=== PATIENT | male | born 1940 | race Caucasian/White ===

== ENCOUNTER 2021-06-15 12:51 | Observation (INO) ==
[2021-06-15] MEDS ORDERED: GLUCAGON 1 MG VIAL IM PRN (13:47)
[2021-06-15] MEDS ORDERED: DEXTROSE 50% 25 GM/50 ML VIAL IV PRN (13:47)
[2021-06-15 14:19] LABS: Basophils % 0.3 % (0.0-0.8); Eosinophils % 0.5 % (0.00-10.9); Hematocrit 35.9 VOL% (42.0-52.0); Hemoglobin 11.4 GM/DL (14.0-18.0); Immature Granulocytes % 0.5 %; Immature Granulocytes Absolute 0.04 #; Lymphocytes % 13.4 % (21.2-54.2); Mean Corpuscular HGB Conc 31.8 GM/DL (32-36); Mean Corpuscular Volume 94.2 FL (87-102); Mean Platelet Volume 10.2 FL (9.6-12.0); Monocytes % 7.1 % (1.7-12.7); Neutrophils % 78.2 % (38.7-73.9); Platelet Count 128 T/CUMM (130-400); Red Blood Count 3.81 MC/CUMM (3.8-5.5); Red Cell Distribution Width 15.2 % (9.3-17.3); White Blood Count 7.6 T/CUMM (4-12)
[2021-06-15 14:34] LABS: Bilirubin,Urine Negative (Negative); Blood, Urine Negative (Negative); Glucose,Urine (UA) 50 mg/dL (Negative); Hyaline Casts,Urine 9 /LPF (0-3); Ketones,Urine Negative (Negative); Mucus,Urine Occasional /LPF (Occasional); Nitrite,Urine Negative (Negative); Protein,Urine Negative; RBC,Urine <1 /HPF (0-4); Urine Appearance CLEAR (Clear); Urine Color Yellow (Yellow); Urine Specific Gravity 1.019 (1.001-1.035); Urine Urobilinogen < 2.0 EU/DL (0.2-1.0)
[2021-06-15 14:39] LABS: Alanine Aminotransferase 25 U/L (16-61); Albumin 3.5 G/DL (3.4-5.0); Alkaline Phosphatase 136 U/L (45-117); Aspartate Amino Transferase 23 U/L (0-37); Bilirubin,Total < 0.39 MG/DL (0.20-1.00); Blood Urea Nitrogen 28 MG/DL (7-18); Calcium 8.8 MG/DL (8.5-10.1); Carbon Dioxide 26 MMOL/L (21-32); Estimated Glom Filtration Rate 85 ML/MIN; Glucose 81 MG/DL (74-106); Osmolality,Calculated 281.5 MOS/KG (273-304); Potassium 4.4 MMOL/L (3.5-5.1); Sodium 139 MMOL/L (136-145); Total Protein 7.1 G/DL (6.4-8.2)
[2021-06-15] MEDS: DEXTROSE 5% NACL 0.45% 1,000 ML IV SCH ×2 (15:19→16:49)
[2021-06-15] MEDS ORDERED: ONDANSETRON 4 MG/2 ML VIAL IV PRN (15:46)
[2021-06-15] MEDS ORDERED: ACETAMINOPHEN 325 MG TABLET PO PRN (15:46)
[2021-06-15] MEDS ORDERED: ENOXAPARIN 40 MG/0.4 ML SYRINGE SUBCUT SCH (16:00)
[2021-06-15] MEDS ORDERED: INFLUENZA VIRUS VACCINE 0.5 ML SYRINGE IM ONE (18:19)
[2021-06-15] MEDS ORDERED: traZODone 50 MG TABLET PO SCH (21:00)
[2021-06-15] MEDS ORDERED: SIMVASTATIN 20 MG TABLET PO SCH (21:00)
[2021-06-15] MEDS ORDERED: lisinopriL 2.5 MG TABLET PO SCH (21:00)
[2021-06-15] MEDS ORDERED: rOPINIRole 0.25 MG TABLET PO SCH (21:00)
[2021-06-15] MEDS ORDERED: metFORMIN 500 MG TABLET PO SCH (21:00)
[2021-06-15] MEDS ORDERED: DONEPEZIL 5 MG TABLET PO SCH (21:00)
[2021-06-15] MEDS: MAGNESIUM OXIDE 400 MG TABLET PO SCH (21:39)
[2021-06-15] MEDS: APIXABAN 5 MG TABLET PO SCH (21:39)
[2021-06-15] MEDS: METOPROLOL TARTRATE 25 MG TABLET PO SCH (21:40)
[2021-06-15] MEDS: COLCHICINE 0.6 MG CAPSULE PO SCH (21:40)
[2021-06-16 05:51] LABS: Basophils % 0.3 % (0.0-0.8); Eosinophils # 0.1 10*3/uL (0.0-0.87); Eosinophils % 1.5 % (0.00-10.9); Hematocrit 31.6 VOL% (42.0-52.0); Immature Granulocytes % 0.5 %; Immature Granulocytes Absolute 0.03 #; Lymphocytes # 1.4 10*3/uL (1.4-4.0); Lymphocytes % 24.4 % (21.2-54.2); Mean Corpuscular HGB Conc 31.6 GM/DL (32-36); Mean Corpuscular Volume 95.2 FL (87-102); Mean Platelet Volume 10.4 FL (9.6-12.0); Monocytes % 9.6 % (1.7-12.7); Neutrophils % 63.7 % (38.7-73.9); Platelet Count 123 T/CUMM (130-400); Red Blood Count 3.32 MC/CUMM (3.8-5.5); Red Cell Distribution Width 15.3 % (9.3-17.3); White Blood Count 5.9 T/CUMM (4-12)
[2021-06-16] MEDS ORDERED: LEVOTHYROXINE 25 MCG TABLET PO SCH (06:00)
[2021-06-16] MEDS: DEXTROSE 5% NACL 0.45% 1,000 ML IV SCH ×2 (06:28→11:15)
[2021-06-16 07:17] LABS: Calcium 8.4 MG/DL (8.5-10.1); Osmolality,Calculated 289.4 MOS/KG (273-304); Potassium 4.3 MMOL/L (3.5-5.1)
[2021-06-16] MEDS ORDERED: DEXTROSE 5% NACL 0.45% 1,000 ML IV SCH (08:00)
[2021-06-16] MEDS ORDERED: allopurinoL 300 MG TABLET PO SCH (09:00)
[2021-06-16] MEDS ORDERED: DILTIAZEM CD 180 MG CAPSULE PO SCH (09:00)
[2021-06-16] MEDS ORDERED: CETIRIZINE 10 MG TABLET PO SCH (09:00)
[2021-06-16] MEDS ORDERED: TAMSULOSIN 0.4 MG CAPSULE PO SCH (09:00)
[2021-06-16] MEDS ORDERED: SERTRALINE 100 MG TABLET PO SCH (09:00)
[2021-06-16] MEDS ORDERED: PANTOPRAZOLE 40 MG TABLET PO SCH (09:00)
[2021-06-16] MEDS ORDERED: MAGNESIUM SULF RIDER 2 GM/50 ML PREMIX IV ONE (09:30)
[2021-06-16] MEDS: APIXABAN 5 MG TABLET PO SCH (10:04)
[2021-06-16] MEDS: COLCHICINE 0.6 MG CAPSULE PO SCH (10:04)
[2021-06-16] MEDS: METOPROLOL TARTRATE 25 MG TABLET PO SCH (10:04)
[2021-06-16] MEDS: MAGNESIUM OXIDE 400 MG TABLET PO SCH (10:05)
[2021-06-16 12:02] VITALS: BP 108/79
== END 2021-06-16 13:10 ==
LOC: EDBD → EDUNIT# → N.EDINP 12:51 → N.ED 12:51 → N.3E 17:02
PROVIDERS: ADMIT Internal Medicine; ATTEND Internal Medicine